=== PATIENT | male | born 1980 | race Two or more races ===

== ENCOUNTER → 2018-04-18 | Outpatient (REF) ==
--- NOTE | 2018-04-18 13:06 | RADIOLOGY IMAGING REPORT ---
[place] [facility] [place] NAME: Davon Saldivar : 1980 MR: [id number] V: [id number] EXAM DATE: ORDERING PHYSICIAN: TIM FERNANDEZ TECHNOLOGIST: Location: [facility] Patient: Davon Saldivar : 1980 Visit/Account:[id number] Date of Sevice: 04/18/2018 Technique: KNEE 3 VIEW RIGHT HISTORY: Right knee pain Comparison studies: Right knee radiographs 09/23/2015 FINDINGS: There is no acute fracture. Degenerative changes are again noted of the right knee charact erized by tricompartmental osteophytosis as well as medial tibiofemoral joint space narrowing. No kn ee joint effusion is identified. IMPRESSION: 1. Degenerative changes of the right knee. Report Dictated By: Jose Cruz Villa DO at 04/18/2018 12:57 PM Report E-Signed By: Jose Cruz Villa DO at 04/18/2018 1:03 PM WSN:[id number]
== END ==
LOC: RAD 11:47
PROVIDERS: ATTEND Orthopaedic Surgery Orthopaedic Surgery of the Spine
DX: M25.561 Pain in right knee (principal)

== ENCOUNTER → 2018-11-01 | Outpatient (REF) | LOC: EDSTATUS 20:00 → RESP 20:02 | PROVIDERS: ATTEND Family Medicine | DX: G47.33 Obstructive sleep apnea (adult) (pediatric) (principal); G47.37 Central sleep apnea in conditions classified elsewhere ==

== ENCOUNTER → 2018-12-04 | Outpatient (REF) | LOC: EDSTATUS 21:00 → RESP 21:00 | PROVIDERS: ATTEND Family Medicine | DX: G47.33 Obstructive sleep apnea (adult) (pediatric) (principal); G47.37 Central sleep apnea in conditions classified elsewhere; G47.36 Sleep related hypoventilation in conditions classified elsewhere ==